=== PATIENT | male | born 1970 | race Caucasian/White ===

== ENCOUNTER 2018-08-13 09:00 | Emergency (ER) | payer OTHER, SELFPAY ==
[2018-08-13 09:11] VITALS: BP 143/91; PULSE 62; RESP 15; TEMP 36.3; O2SAT 97; BMI 25.8
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
[2018-08-13] MEDS: HYDROMORPHONE 2 MG INJ 1 MG IM (10:07)
[2018-08-13] MEDS: KETOROLAC 60 MG/2 ML VIAL 30 MG IM (10:07)
--- NOTE | 2018-08-13 10:12 | PC.NURSE ---
Back pain x 12 days. Has seen chiropractor w/o relief. Only position of comfort is lying flat. MARTE equally well w/o deficit. Neuro intact. Denies bowel / bladder difficulty.
[2018-08-13 10:38] VITALS: BP 112/73; PULSE 70; RESP 12; O2SAT 97
[2018-08-13] MEDS: MORPHINE 4 MG/ML INJ IM (11:28)
[2018-08-13] MEDS: predniSONE 20 MG TABLET 60 MG PO (11:29)
[2018-08-13] MEDS: HYDROCODONE/ACET 5/325 TABLET 2 TAB PO (11:29)
[2018-08-13 12:02] VITALS: BP 115/74; PULSE 60; RESP 14; O2SAT 99
--- NOTE | 2018-08-13 12:18 | DI.RAD.S_ITS ---
PROCEDURE: XR LUMBAR SPINE 2-3V INDICATIONS: back pain TECHNIQUE: 3 views of the lumbar spine were acquired. COMPARISON: None. FINDINGS: Bones: 5 [id number] vertebrae are present. There is mild dextroscoliotic bony alignment. No vertebral body compression fractures. No suspicious bony lesions. Soft tissues: Overlying bowel gas pattern is normal. No suspicious soft tissue calcifications. IMPRESSION: No trauma found. Mild dextroscoliosis centered at L3. Mild degenerative disc disease and facet osteoarthritis from L3 inferiorly and best seen at L5-S1. Dictated by: John Blair M.D. on 08/13/2018 at 12:45 Approved by: John Blair M.D. on 08/13/2018 at 12:46
--- NOTE | 2018-08-13 12:18 | PC.NURSE ---
Dr. Tran in to re-evaluate. Pt to have x rays. Pt states pain is not better upon standing. Comfortable at rest.
[2018-08-13 13:06] VITALS: BP 128/72; PULSE 77; RESP 16; O2SAT 99
== END 2018-08-13 13:10 | disposition home or self-care (01) ==
PROVIDERS: Emergency Provider Emergency Medicine; PCP Physician Assistant Surgical
DX: M54.9 Dorsalgia, unspecified (principal)
CPT/HCPCS: 72100; 96372; 99283; J1170; J1885; J2270